=== PATIENT | female | born 1980 | race Caucasian/White ===

== ENCOUNTER 2020-04-24 18:36 | Emergency (ER) | payer OTHER, SELFPAY ==
[2020-04-24 19:13] VITALS: BP 152/85; PULSE 91; RESP 16; TEMP 36.3; O2SAT 93
[2020-04-24 20:37] LABS: Add Urine Microscopic? YES; Appearance Urine Clear (Clear); Bacteria Urine 2+ /hpf; Bilirubin Urine Negative (Negative); Blood Urine Negative (Negative); Color Urine Yellow (Yellow); Glucose Urine UA 3+ mg/dL (Negative); Ketones Urine Negative (Negative); Leukocyte Esterase Ur Trace LEU/UL (Negative); Mucus Urine Rare /lpf; Nitrate Urine Negative (Negative); Protein Urine 1+ mg/dL (Negative); Specific Grav Ur 1.041 (1.001-1.035); Squamous Epithelial Cell Urine Many /hpf (Few); Urobilinogen Urine Negative mg/dL (<2.0)
--- NOTE | 2020-04-24 21:27 | PC.NURSE ---
pt currently yelling at EDP Dr. Nelson because she is irritated that she has had to answer the same questions multiple times.
--- NOTE | 2020-04-24 21:54 | ED.FEMALEGU ---
HPI - Female Genitourinary General Chief complaint: Urogenital-Female Stated complaint: vag itching, burning, mass? Time Seen by Provider: 04/24/20 19:48 Source: patient Mode of arrival: ambulatory Limitations: no limitations History of Present Illness HPI Narrative: This is a 40 year old female that presents to the ER for vaginal irritation and discharge x 1 month. Associated with urinary frequency. Also reports a tender mass around her vagina. 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 Denies fever, dysuria, hematuria, abdominal pain or vomiting. Related Data Allergies Allergy/AdvReac Type Severity Reaction Status Date / Time azithromycin Allergy Hives Verified 04/24/20 19:16 Review of Systems Review of Systems: Narrative: CONSTITUTIONAL: Denies fever GASTROINTESTINAL: Denies abdominal pain, nausea, vomiting GENITOURINARY: Denies dysuria or hematuria. SKIN: Reports rash and itching. All systems reviewed & are unremarkable except as noted in HPI and below PMFSH Past Medical History Medical History (Updated 04/24/20 @ 23:51 by Irene Aguilar PA-C) History of diabetes mellitus History of herpes genitalis Social History Social History Gender identity (if verbalized by the patient): Female Exam Narrative: Exam Narrative: GENERAL: Well-appearing, obese, and in no acute distress. HEAD: Normocephalic, atraumatic. EYES: EOMI. EXTREMITIES: Normal range of motion. No edema. SKIN: Warm, dry, no rash. NEURO: No focal deficits. Alert and oriented x3. PSYCH: Normal mood and affect PELVIC: Moderate erythema/irritation to the vulvovaginal area with white discharge present. Left labia majora with 2.5cm area of erythema and edema with central fluctuance. Normal appearing cervix. Small amount of white discharge in the vaginal vault Course Consultations Consultation #1: Spoke with Dr. Stewart about patient and workup who agrees with treatment plan. Date: 04/24/20 Time: 23:48 Vital Signs Vital signs: Vital Signs Temperature 97.4 F L 04/24/20 19:13 Pulse Rate 91 04/24/20 19:13 Respiratory Rate 16 04/24/20 19:13 Blood Pressure 152/85 H 04/24/20 19:13 Pulse Oximetry 93 04/24/20 19:13 Temperature 97.4 F L 04/24/20 19:13 Pulse Rate 91 04/24/20 19:13 Respiratory Rate 16 04/24/20 19:13 Blood Pressure 152/85 H 04/24/20 19:13 Pulse Oximetry 93 04/24/20 19:13 MDM - Female Genitourinary MDM Narrative Medical decision making narrative: Patient presents to the ER for vaginal irritation and itching. Also a small labial abscess. She is afebrile and nontoxic appearing. Abscess was successfully drained. Exam consistent with vulvovaginal candidiasis as well. CBC is with leukocytosis to 14.8. ESR and CRP are mildly elevated. Blood glucose elevated at 309 and hemoglobin A1c is 11.7. Patient does have known history of diabetes, but has been off her diabetes medications for some time. Bedside test is negative. Trichomonas was positive. This will be treated. Chlamydia and gonorrhea were sent. Patient will be presumptively treated for these as well. I did send a wound culture of the abscess and a genital culture. Patient will be restarted on Metformin for her diabetes. Spoke with Dr. Stewart about patient and workup who agrees with treatment plan. She was also instructed on the importance of following up with a primary care doctor as well. She was given warnings to return to the ER Lab Data Attestation: I reviewed the patient's lab results. Result diagrams: 04/24/20 22:06 04/24/20 22:06 Labs: Lab Results 04/24/20 04/24/20 04/24/20 Range/Units 20:17 21:57 21:57 WBC (4.5-10.0) K/mm3 RBC (4.2-5.4) M/mm3 Hgb (12.0-15.0) g/dL Hct (37.0-47.0) % MCV (80-100) fl MCH (26-34) pg MCHC (32-36) g/dl RDW (11.5-14.5) % Plt Count (150-375) k/mm3 MPV (7.4-10.4) fl Immature Gran % (Auto) (0
[2020-04-24 22:35] LABS: Basophils Absolute Auto 0.1 K/mm3 (0.0-0.1); Basophils Percent Auto 0.3 % (0.2-1.2); Eosinophils Absolute Auto 0.1 K/mm3 (0-0.3); Eosinophils Percent Auto 0.5 % (0-4.4); Hematocrit 38.3 % (37.0-47.0); Hemoglobin 12.3 g/dL (12.0-15.0); Immature Granulocyte Absolute 0.07 K/mm3 (0.00-0.031); Immature Granulocyte Percent A 0.5 % (0-0.5); Lymphocytes Absolute Auto 3.77 K/mm3 (0.9-3.2); Lymphocytes Percent Auto 25.4 % (18.3-44.2); Mean Corpuscular HGB Conc 32.1 g/dl (32-36); Mean Corpuscular Hemoglobin 24.3 pg (26-34); Mean Corpuscular Volume 75.7 fl (80-100); Monocytes Percent Auto 6.8 % (2.6-8.5); Neutrophils Absolute Auto 9.8 K/mm3 (1.3-6.7); Neutrophils Percent Auto 66.5 % (45.5-73.1); Platelet Count Result 427 k/mm3 (150-375); Red Blood Count 5.06 M/mm3 (4.2-5.4); Red Cell Distribution Width 14.8 % (11.5-14.5); White Blood Count 14.8 K/mm3 (4.5-10.0)
[2020-04-24 22:37] LABS: Hemoglobin A1C 11.7 % (<5.7)
[2020-04-24 22:39] LABS: Anion Gap 5 mmol/L (8-16); Blood Urea Nitrogen 9 mg/dL (7-17); CRP 1.9 mg/dL (<1.0); Calcium 9.4 mg/dL (8.4-10.2); Carbon Dioxide 25 mmol/L (22-30); Chloride 102 mmol/L (98-107); Estimated CRCL calculation 185 ml/min; Estimated Glomerular Filt Rate > 60; Glucose 309 mg/dL (65-105); Potassium 3.9 mmol/L (3.4-5.0); Sodium 132 mmol/L (137-145)
[2020-04-24] MEDS: metroNIDAZOLE 250 MG TABLET 500 MG PO (22:54)
[2020-04-24] MEDS: FLUCONAZOLE 150 MG TABLET PO (22:54)
[2020-04-24 23:10] LABS: Erythrocyte Sedimentation Rate 25 mm/hr (0-20)
[2020-04-25] MEDS: DOXYCYCLINE HYCLATE 100 MG TABLET PO (00:02)
[2020-04-25] MEDS: LIDOCAINE HCL 1% LOCAL INJ 20 ML VIAL (00:16)
[2020-04-25] MEDS: cefTRIAXone 1 GM VIAL 0.5 GM IM (00:16)
[2020-04-25 00:27] VITALS: BP 146/89; PULSE 110; RESP 20; TEMP 37; O2SAT 97
== END 2020-04-25 00:25 | disposition home or self-care (01) ==
PROVIDERS: Emergency Medicine; Physician Assistant; Emergency Provider Emergency Medicine
DX: N76.4 Abscess of vulva (principal); A59.9 Trichomoniasis, unspecified; B37.3 Candidiasis of vulva and vagina; E11.9 Type 2 diabetes mellitus without complications
CPT/HCPCS: 36415; 80048; 81001; 81025; 83036; 85025; 85652; 86140; 87070; 87077; 87086; 87088; 87147; 87186; 87205; 87491; 87591; 87808; 96372; 99284; A9270; J0696